=== PATIENT | male | born 1960 | race Caucasian/White ===

== ENCOUNTER 2017-10-31 00:50 | Inpatient (IN) | payer BC, OTHER ==
[2017-10-31 01:17] LABS: #Basophils 0.1 thou/uL (0.0-0.2); #Eosinphils 0.2 thou/uL (0.0-0.7); #Lymphocytes 2.2 thou/uL (1.20-3.40); #Monocytes 0.6 thou/uL (0.11-0.59); #Neutrophils 4.4 thou/uL (1.40-6.50); %Basophils 0.9 % (0.0-1.0); %Eosinophils 2.3 % (0.0-10.0); %Lymphocytes 29.8 % (21.0-51.0); %Monocytes 7.9 % (0.0-10.0); %Neutrophils 59.1 % (42.0-75.0); Hemoglobin 15.1 g/dL (14.0-18.0); Mean Corpuscular HGB CONC 35.4 g/dL (32.0-36.0); Mean Corpuscular Hemoglobin 35.5 pg (27.0-31.0); Mean Platelet Volume 8.1 fL (7.4-10.4); Platelet Count 203 thou/uL (130-400); RBC Distribution Width 11.8 % (11.5-14.5); Red Blood Cell (RBC) Count 4.27 mill/uL (4.70-6.10); White Blood Cell (WBC) Count 7.4 thou/uL (4.8-10.8)
[2017-10-31 01:41] LABS: ALT (SGPT) 17 U/L (8-55); AST (SGOT) 16 U/L (5-34); Albumin 3.9 g/dL (3.5-5.0); Alkaline Phosphatase 60 U/L (40-150); Anion Gap 12 mmol/L (10-20); BUN (Urea Nitrogen) 13 mg/dL (8.4-25.7); Bilirubin, Total 0.2 mg/dL (0.2-1.2); CK (CPK) 79 U/L (30-200); Calc. Creatinine Clearance 0 mL/min (70-130); Calcium 8.7 mg/dL (7.8-10.44); Carbon Dioxide 22 mmol/L (22-29); Chloride 108 mmol/L (98-107); Estimated GFR-MDRD 72; Globulin 2.7 g/dL (2.4-3.5); Glucose 106 mg/dL (70-105); Protein, Total 6.6 g/dL (6.0-8.3); Sodium 138 mmol/L (136-145)
[2017-10-31 03:16] LABS: CKMB 1.2 ng/mL (0-6.6); Troponin I Less than 0.010 ng/mL (< 0.028)
--- NOTE | 2017-10-31 06:44 | PDOC.FPRHP ---
- History of Present Illness Chief Complaint: chest pain History of Present Illness: 57 yo pt w/ pmh including stent 10 years ago comes in with crushing left sided chest pain. Woke him up from sleep at about 11pm last night. It lasted for about 1 min at a time and came and went about 5 times. Nothing made it worse, nitroglycerin made it better. Pain rated 10/10 at worst, 0 at time of examination. Caused L arm numbness. Became red in the face but denies diaphoresis. Has been feeling more fatigued than usual for the last few months. Does not feel like chest pain he had before his cath. ED Course: Trop negative EKG shows old RBB, no ST elevations or depression - Home Medications Medication Instructions Recorded Confirmed Type No Known [No Known] 10/31/17 10/31/17 History - History PMHx: No medical history per patient PSHx: cath with stent 10 years ago w/ Dr. Bernabe, neck surgery FHx: heart disease in mom at age 70 Social: drinks 6 cans of beer nightly, no smoking or drugs - Review of Systems General: denies: fever/chills, night sweats, fatigue ENT: denies: nasal congestion, rhinorrhea Respiratory: denies: cough, shortness of breath Cardiovascular: reports: chest pain. denies: palpitation, edema, orthopnea Gastrointestinal: denies: nausea, vomiting, diarrhea, constipation, abdominal pain Genitourinary: denies: incontinence, polyuria Skin: denies: rashes Musculoskeletal: denies: pain, arthritis/arthralgias Neurological: denies: numbness, weakness Psychological: denies: anxiety - Vital signs BP: 138/94 HR: 61 RR: 22 Tmax: 98.3 Pox: 94% on RA Wt: 92.99kg - Physical Exam Constitutional: NAD, awake, alert and oriented HEENT: normocephalic and atraumatic, PERRLA Neck: supple Heart: RRR, normal S1/S2, no murmurs/rubs/gallops Lungs: CTAB, no respiratory distress, good air movement Abdomen: soft, non-tender, bowel sounds present, no masses/distention, other ( no hepatomegaly) Musculoskeletal: normal structure Neurological: no focal deficit Skin: no rash/lesions, capillary refill <2 seconds Heme/Lymphatic: no unusual bruising or bleeding FMR H&P: Results - Labs Result Diagrams: 10/31/17 01:07 10/31/17 01:07 Lab results: WBC 7.4 thou/uL (4.8-10.8) 10/31/17 01:07 Hgb 15.1 g/dL (14.0-18.0) 10/31/17 01:07 Hct 42.8 % (42.0-52.0) 10/31/17 01:07 MCV 100.0 fl (80.0-94.0) H 10/31/17 01:07 Plt Count 203 thou/uL (130-400) 10/31/17 01:07 Neutrophils % 59.1 % (42.0-75.0) 10/31/17 01:07 Sodium 138 mmol/L (136-145) 10/31/17 01:07 Potassium 4.0 mmol/L (3.5-5.1) 10/31/17 01:07 Chloride 108 mmol/L (98-107) H 10/31/17 01:07 Carbon Dioxide 22 mmol/L (22-29) 10/31/17 01:07 BUN 13 mg/dL (8.4-25.7) 10/31/17 01:07 Creatinine 1.05 mg/dL (0.6-1.3) 10/31/17 01:07 Glucose 106 mg/dL (70-105) H 10/31/17 01:07 Calcium 8.7 mg/dL (7.8-10.44) 10/31/17 01:07 Total Bilirubin 0.2 mg/dL (0.2-1.2) 10/31/17 01:07 AST 16 U/L (5-34) 10/31/17 01:07 ALT 17 U/L (8-55) 10/31/17 01:07 Alkaline Phosphatase 60 U/L (40-150) 10/31/17 01:07 Creatine Kinase 79 U/L (30-200) 10/31/17 01:07 CK-MB (CK-2) 1.2 ng/mL (0-6.6) 10/31/17 01:07 B-Natriuretic Peptide Less than 10.0 pg/mL (0-100) 10/31/17 01:07 Serum Total Protein 6.6 g/dL (6.0-8.3) 10/31/17 01:07 Albumin 3.9 g/dL (3.5-5.0) 10/31/17 01:07 - EKG Interpretation EKG: Old RBB, no st changes FMR H&P: A/P - Problem List (1) Chest pain due to CAD Current Visit: Yes Status: Acute Code(s): R07.9 - CHEST PAIN, UNSPECIFIED; I25.10 - ATHSCL HEART DISEASE OF [place] CORONARY ARTERY W/O ANG PCTRS (2) Alcohol abuse Current Visit: Yes Status: Acute Code(s): F10.10 - ALCOHOL ABUSE, UNCOMPLICATED - Plan # Chest Pain, r/o CAD - CAth w/ stent 10 years ago - ASA, statin - EKG shows old RBB, no st changes - trop negative, trend x2 - BNP negative - check FLP - Plan for Exercise stress this AM - Consult Dr. Bernabe who is his [employer]ty [employer] Cook # Alcoholism - drinks 6 cans of beer per night - last drink 8pm 10/30 - ASE protocol Diet: NPO Fluids: none Code: full Dispo: <48 hours FMR H&P: Upper Level - Pertinent history 57 yo M with PMH significant for HTN, CAD s/p stent x1 presents with chest pain since early this morning. Pain is left-sided, nonradiating, pressure like in nature. Associated SOB. No associated N/V, diaphoresis, headache, dizziness, vision changes. Had multiple episodes after initial one woke him from sleep, each lasting about a minute. Pain improved after taking ASA in ER. States this does not feel like the chest pain he had when he had his stent placed in 2007. - Pertinent findings PE: T: 98.3 P: 61 BP: 132/94 RR: 22 94% on RA Gen: [place] male in NAD HEENT: PERRL, EOMI, MMM, no lymphadenopathy or thyromegaly CV: RRR no murmurs, distal pulses intact Pulm: CTAB, no wheezes or rhonchi Abd: soft, NT/ND, BS present, no masses Ext: no cyanosis or edema MSK: MARTINI well, no joint or muscle pain or swelling Neuro: CN 2-12 intact, normal sensation Skin: no rashes or lesions Psych: A&O x3, appropriate in conversation - Plan Date/Time: 10/31/17 0641 57 yo M here with CP. 1) Typical chest pain: Obs on tele, continue to trend cardiac enzymes. HEART score = 5. Will order stress given cardiac risk factors and history of CAD. Continue ASA. 2) HTN: Continue home medications. I, [Harley Brown], have evaluated this patient and agree with findings/plan as outlined by architecture internship resident. Pertinent changes/additions are listed here.
[2017-10-31] MEDS ORDERED: Acetaminophen 325 MG TAB PO PRN ×2 (07:20→07:33)
[2017-10-31 07:30] VITALS: BMI 32.3
[2017-10-31 07:30] LABS: CKMB 2.3 ng/mL (0-6.6); Troponin I 0.156 ng/mL (< 0.028)
[2017-10-31] MEDS ORDERED: Enoxaparin Sodium 40 MG/0.4 ML SYRINGE SC SCH (07:33)
[2017-10-31] MEDS ORDERED: Nitroglycerin 0.4 MG TAB (25 Tab Bottle) PO PRN (07:33)
[2017-10-31] MEDS ORDERED: Ondansetron ODT 4 MG TAB PO PRN (07:33)
[2017-10-31] MEDS ORDERED: Diazepam 5 MG TAB PO PRN (07:39)
[2017-10-31] MEDS ORDERED: Diazepam 5 MG TAB PO SCH (07:45)
[2017-10-31] MEDS ORDERED: Thiamine HCl 200 MG/2 ML VIAL IM SCH (07:45)
[2017-10-31 08:17] LABS: Magnesium 2.3 mg/dL (1.6-2.6); Phosphorus 2.6 mg/dL (2.3-4.7)
[2017-10-31 08:20] LABS: Cardiac Risk 6.6 (Less than 4.5)
--- NOTE | 2017-10-31 08:41 | PDOC.FM ---
- Subjective Subjective: Not complaining of chest pain this morning. - Objective MAR Reviewed: Yes Vital Signs & Weight: Vital Signs (12 hours) Temp Pulse Resp BP Pulse Ox 10/31/17 08:00 97.7 F 59 L 12 10/31/17 07:10 97.7 F 59 L 12 124/73 98 Weight Weight 108.182 kg Result Diagrams: 10/31/17 01:07 10/31/17 01:07 Phys Exam - Physical Examination Constitutional: NAD HEENT: PERRLA, moist MMs Respiratory: no wheezing, no rales, no rhonchi, clear to auscultation bilateral Cardiovascular: RRR, no significant murmur Gastrointestinal: soft, non-tender Musculoskeletal: no edema, pulses present Neurological: non-focal, normal sensation Psychiatric: normal affect, A&O x 3 Skin: no rash, normal turgor Dx/Plan - Plan Plan: 57 yo man with pmhx of CAD s/p cath and stent placement >10 years ago admitted for atypical chest pain with shortness of breath. # Chest Pain likely unstable angina - described as substernal with radiation to his neck and left shoulder, with associated shortness of breath and diffuse wheezing on exam - PMHx of CAD s/p CAth w/ stent 10 years ago - ASA, statin - EKG shows old RBB, no st changes - initial trop negative, second troponin indeterminate - BNP negative - check FLP - Consult Dr. Bernabe who is his Airplane Patroller, will change exercise to cardiolyte but suspect possible cath with current and pmhx. Will discuss with cardiology. - Pt's second trop and ckmb increased as well. - ther lovenox - repeat EKG # Alcoholism - drinks 6 cans of beer per night - last drink 8pm 10/30 - ASE protocol Diet: NPO Fluids: none Code: full Dispo: <48 hours
--- NOTE | 2017-10-31 08:54 | RAD ---
CHEST 1 VIEW: HISTORY: Chest pain. COMPARISON: Radiograph 08/04/09. FINDINGS: Lungs without focal airspace consolidation, pneumothorax, or effusion. Cardiac silhouette and medias tinal contours are similar. No pneumothorax. Incomplete evaluation of ACDF hardware. IMPRESSION: No acute intrathoracic abnormality. POS: TPC
[2017-10-31] MEDS ORDERED: Multivitamin W/ Minerals 1 TAB PO SCH (09:00)
[2017-10-31] MEDS ORDERED: Folic Acid 1 MG TAB PO SCH (09:00)
--- NOTE | 2017-10-31 09:56 | HP ---
I have reviewed the history and physical of Dr. Jules Gipson. I have discussed the case with him. HISTORY OF PRESENT ILLNESS: Mr. Pastrana is a pleasant 57-year-old white male patient with known lillian nary artery disease, who is status post stent placement 10 years ago with intermittent spotty followu ps since that time. He currently takes no medications. He was awoken last night with retrosternal c hest discomfort just to the left of the midline that was described as a heavy crushing feeling. It w as associated with shortness of breath, but no diaphoresis. Although it came and went, it lasted for at least several minutes. EMS was called and he was transported to the emergency room. He had rece ived 1 dose of nitroglycerin, which greatly relieved his chest discomfort. His initial troponin was negative. He has been admitted for further evaluation. PHYSICAL EXAMINATION: VITAL SIGNS: Current blood pressure is 124/73, pulse rate 60 and regular. He is afebrile. Room air saturation is 98%. GENERAL: He is awake, alert, in no distress. He states he is to have a very slight left-sided disco mfort, but not near as bad as he had earlier in the morning. EARS, NOSE, AND THROAT: He has no erythema or exudate. NECK: Supple without JVD. There are no carotid bruits. CARDIAC: The PMI is in the fifth intercostal space at the midclavicular line. An S4 apical gallop n oted. LUNGS: Clear, without rales or wheezes, though slightly diminished. ABDOMEN: Flat and soft, without guarding, rebound or rigidity. EXTREMITIES: No edema. NEUROLOGIC: No focal deficits. LABORATORY DATA: His initial troponin was 0.010. Subsequent troponin 6 hours later is 0.156, both o f these in the indeterminate range. Sodium is 138, potassium 4, chloride 108, bicarbonate 22, BUN 13 , creatinine 1.05, glucose 106. His liver enzymes are normal. CBC: White count 7400, hemoglobin 15 .8, hematocrit 42.1 with an MCV of 100. EKG: Right bundle branch block. ASSESSMENT: Chest pain suspicious for coronary syndrome in a patient with coronary artery disease. PLAN: We will get at least a stress test. We will consult Cardiology, may likely later need cathete rization. Continue to monitor troponins. I have administered aspirin and we will start the usual re gimen after stress test.
[2017-10-31] MEDS ORDERED: Enoxaparin Sodium 80 MG/0.8 ML SYRINGE SC SCH (10:00)
[2017-10-31 10:33] LABS: CKMB 2.8 ng/mL (0-6.6); Troponin I 0.191 ng/mL (< 0.028)
[2017-10-31] MEDS ORDERED: Iopamidol 370 76% 100 ML VIAL ONE (10:39)
[2017-10-31] MEDS ORDERED: Aspirin 81 mg Enteric Coated Tablet PO SCH (11:15)
--- NOTE | 2017-10-31 12:21 | EKG ---
Test Reason : Blood Pressure : / mmHG Vent. Rate : 055 BPM Atrial Rate : 055 BPM P-R Int : 186 ms QRS Dur : 150 ms QT Int : 438 ms P-R-T Axes : 055 035 021 degrees QTc Int : 419 ms Sinus bradycardia Right bundle branch block Abnormal ECG When compared with ECG of 31-OCT-2017 00:58, (Unconfirmed) T wave amplitude has increased in Anterior leads Confirmed by WALTER SHANKAR ([id number]) on 10/31/2017 12:20:59 PM Referred By: CELE Confirmed By:WALTER SHANKAR
[2017-10-31] MEDS ORDERED: Lidocaine 1% (PF) 30 ML VIAL ONE (14:16)
[2017-10-31] MEDS ORDERED: Sodium Chloride 0.9% 1,000 ML IV SCH (14:30)
[2017-10-31] MEDS ORDERED: Communication Order-Pharmacy FS SCH ×2 (14:30→17:20)
[2017-10-31] MEDS ORDERED: Fentanyl 100 MCG/2 ML VIAL ONE (14:34)
[2017-10-31] MEDS ORDERED: Midazolam HCl 2 mg/2 ml Vial ONE (14:34)
[2017-10-31] MEDS ORDERED: Heparin 10,000 UNITS/1 ML VIAL ONE (14:34)
[2017-10-31] MEDS ORDERED: Verapamil 5 MG/2 ML VIAL ONE ×2 (14:34→14:35)
[2017-10-31] MEDS ORDERED: Nitroglycerin 100MG/250ML BOT 250 ML ONE (14:35)
[2017-10-31] MEDS ORDERED: Acetaminophen/Codeine 30-300mg Tablet PO PRN ×2 (15:10)
[2017-10-31] MEDS ORDERED: traMADol HCl 50 MG TAB PO PRN (15:10)
[2017-10-31] MEDS ORDERED: Nitroglycerin 0.4 MG TAB (25 Tab Bottle) SL PRN (15:10)
[2017-10-31] MEDS ORDERED: Sodium Chloride 0.9% 200 ML IV PRN (15:15)
[2017-10-31] MEDS: Sodium Chloride 0.9% 1,000 ML IV SCH (15:35)
[2017-10-31 17:51] LABS: PTT 38.1 SEC (22.9-36.1); Prothrombin Time 13.6 SEC (12.0-14.7)
--- NOTE | 2017-10-31 17:52 | CON ---
DATE OF CONSULTATION: 10/31/2017 REASON FOR CONSULTATION: Elevated troponin and chest pain. HISTORY OF PRESENT ILLNESS: Mr. Pastrana is a 57-year-old gentleman who was seen and evaluated by Dr. Lawson Bernabe over 5 years ago. Mr. Pastrana has a history of a stent placement. During angiography performed by Dr. Lawson Bernabe in 2011, there was no evidence of stent placement. Last angiogram pe rformed in 2011 which showed the following: LAD with 40% mid stenosis followed by 40% distal stenosi s. Second diagonal branch with subtotal occlusion. Circumflex artery had 20% in-stent mid stenosis with 50% stenosis in a small OM. The right coronary artery had a 20% lesion. The patient has underg one a stent placement to the circumflex artery in the past. This was in 2005. He has been lost to f ollow up. Recently, Mr. Pastrana presented with acute onset of chest pain. Last 1-1/2 hours, it awoke him from sleep. Nitroglycerin seemed to improve his episode. No other associated ameliorating or exacerbatin g events present. PAST MEDICAL HISTORY: CAD, hyperlipidemia. FAMILY HISTORY: Positive for CAD. SOCIAL HISTORY: Positive alcohol use, no current tobacco use. REVIEW OF SYSTEMS: Ten-point review of systems reviewed as above, otherwise negative. PHYSICAL EXAMINATION: GENERAL: Patient is a pleasant male who is in no acute distress. The patient appears his stated age . VITAL SIGNS: Blood pressure 120/75, pulse 58, temperature afebrile. NEUROLOGIC: The patient is alert and oriented times 3 with no focal neurologic deficits. HEENT: Sclerae without icterus. Mouth has moist mucous membranes with normal pallor. NECK: No JVD. Carotid upstroke brisk. No bruits bilaterally. LUNGS: Clear to auscultation with unlabored respirations. BACK: No scoliosis or kyphosis. CARDIAC: Regular rate and rhythm with normal S1 and S2. No S3 or S4 noted. No significant rubs, mu rmurs, thrills, or gallops noted throughout the precordium. PMI is not displaced. There is no gavin ternal heave. ABDOMEN: Soft, nontender, nondistended. No peritoneal signs present. No hepatosplenomegaly. No ab normal striae. EXTREMITIES: 2+ femoral and 2+ dorsalis pedis pulses. No cyanosis, clubbing, or edema. SKIN: No gross abnormalities. PERTINENT LABS: Hemoglobin 15.1. Peak troponin 0.156. IMPRESSION: 1. Unstable angina. 2. Coronary artery disease. 3. Status post stent placement. RECOMMENDATIONS: I presented several options to Mr. Pastrana. I discussed cholangiography versus non invasive stress study. I have discussed the risks and benefits of both, he decided to proceed with c oronary angiography. I discussed the procedure in full detail with the patient. The risks of the pr ocedure were also discussed. The risks of the procedure include but are not limited to the following : , stroke, GA, need for emergency surgery, loss of limb, bleeding, and infection, as well as a reaction to the dye causing kidney failure and needing long-term dialysis. I also discussed the ris ks of PCI to include all of the above including coronary dissection and perforation in addition to ac puja stent thrombosis and restenosis. All questions about the procedure were answered. Given the abo ve, the patient agreed to proceed with coronary angiography and possible PCI. I also discussed drug coated and non-drug coated stent placement. His family was present during the discussion. He states he can take Plavix if needed for at least a year. Otherwise, no other contraindications. We will p roceed if needed.
[2017-10-31] MEDS ORDERED: Atorvastatin Calcium 40 MG TAB PO SCH (21:00)
[2017-10-31] MEDS ORDERED: Enoxaparin Sodium 100 MG/ML SYRINGE SC SCH ×2 (21:00)
[2017-10-31] MEDS ORDERED: Enoxaparin Sodium 120 MG/0.8 ML SYRINGE SC SCH (21:00)
--- NOTE | 2017-11-01 01:28 | CON ---
DATE OF CONSULTATION: 10/31/2017 REQUESTING PHYSICIAN: Dr. Kenny. CHIEF COMPLAINT: Chest pain. HISTORY OF PRESENT ILLNESS: The patient is a 57-year-old man with a personal and family history of p remature coronary artery disease, having self-undergone stenting about 10 years ago for coronary patricia ry disease, manifesting dyspnea on exertion. He had done reasonably well over the last 10 years, alt wilda it sounds like over the last few weeks or months, he has been having chest pain, typical of ang olivia that is largely chosen to simply ignore. Last night; however, he awoke from sleep with crushing left chest pain that radiated to his left arm, associated with shortness of breath. His troponins we re initially negative, but turned positive on followup draws. His EKG at baseline is right bundle br anch and he had no obvious changes from his baseline. PAST MEDICAL HISTORY: Significant for hypertension, coronary artery disease, although it sounds like he does not take medications on a regular basis. MEDICATIONS: He is currently on baby aspirin, Lipitor 40 mg at bedtime, thiamine, folate, multivitam ins, it appears beta blockers were deferred because of a baseline. Heart rate that has been largely in the upper 50s to lower 60s. ALLERGIES: He denies any medical allergies. SOCIAL HISTORY: He is rather noncommittal about smoking, initially saying he does not smoke when his family interjected, he corrected himself saying that he only smokes when he drinks, but he drinks da magalys. He admits to about a 6 pack of beer a day. FAMILY HISTORY: Significant for multiple first and second-degree relatives with coronary artery dise ase. REVIEW OF SYSTEMS: Negative for any transient eye, speech, facial, or extremity symptoms suggestive of TIAs. He is noticeable for some chronic neck pain and some numbness in both arms that he attribut es to his neck problems. He has no claudication symptoms. PHYSICAL EXAMINATION: GENERAL: He is a robust appearing man in no distress. EYES: He has no xanthelasma. NECK: No JVD, no carotid bruits. CHEST: Clear to auscultation. CARDIOVASCULAR: He has a regular rate and rhythm. ABDOMEN: Soft, nontender. EXTREMITIES: He has a pressure device on his right wrist from a radial puncture for his catheterizat ion. His left radial pulse is easily palpable with a normal 's test in the left hand. He has a palpable femoral, dorsalis pedis, and posterior tibial pulses. No obvious varicosities. No clubbin g, cyanosis, or edema. NEUROLOGIC: Nonfocal. VITAL SIGNS: Heart rate has been in the upper 50s to lower 60s, currently 58; blood pressure 132/80; temperature 98.4; room air sats are 94%. IMAGING: Chest x-ray showed slightly prominent pulmonary vasculature. LABORATORY DATA: White count 7.4, hemoglobin 15.1, hematocrit 42.8, platelets 203,000, but an MCV of 100. Electrolytes were normal, glucose 106, BUN 13, creatinine 1.05. LFTs were normal. Calcium 8. 7, protein 6.6, albumin 3.9. Troponins initially were undetectable, but roughly 6 hours later return ed positive at 0.156 and roughly 3 hours after that 0.191. Fasting triglycerides were 346, cholester ol 238, LDL 133, and HDL 36. Cardiac catheterization showed a right dominant system with a trivial i f any disease in the right coronary system. He had normal left main, but he had long complex disease in the proximal LAD with a very high first diagonal that has ostial disease. He has a small second diagonal with subtotal ostial stenosis. He has high-grade lesions throughout the proximal LAD. His circumflex has a diseased bifurcated OM1 that is modest caliber, has a long very high-grade lesion in the circumflex proper, prior to a very large second obtuse marginal and terminal arborization of the circumflex. LVEF is around 60% by my estimation. Aortic pressure was 104/66, mean of 83 and pullba ck from an LV of 104/5 with an EDP of 7. IMPRESSION AND PLAN: Severe 2-vessel disease. I think that he will get superior, long-term symptoma tic benefit from surgical revascularization and he agrees to proceed.
[2017-11-01] MEDS ORDERED: CEFAZOLIN/Water 2 GM/20 ML SYRINGE SLOW IVP SCH (02:45)
[2017-11-01] MEDS ORDERED: Diazepam 5 MG TAB PO PRN (04:00)
[2017-11-01] MEDS: Sodium Chloride 0.9% 1,000 ML IV SCH ×3 (05:47→14:34)
[2017-11-01] MEDS ORDERED: Albumin 5% 0 ML ONE (06:25)
[2017-11-01] MEDS ORDERED: Heparin 10,000 UNITS/1 ML VIAL 30,000 UNITS in Sodium Chloride 0.9% 1,000 ML FS SCH (06:45)
[2017-11-01] MEDS ORDERED: CEFAZOLIN/Water 2 GM/20 ML SYRINGE ONE (06:55)
--- NOTE | 2017-11-01 06:56 | PDOC.FM ---
- Subjective Subjective: Pt is s/p cath with 2V disease found. Pt in the OR this morning for a CABG. Will follow-up with afterwards. - Objective Vital Signs & Weight: Vital Signs (12 hours) Temp Pulse Resp BP BP Pulse Ox 11/01/17 04:47 97.9 F 58 L 16 109/69 96 10/31/17 23:40 98.1 F 59 L 12 117/70 95 10/31/17 20:00 98.1 F 74 18 125/71 94 L 10/31/17 19:55 98.1 F 59 L 12 94 L Result Diagrams: 11/02/17 04:03 11/02/17 04:03 Phys Exam - Physical Examination Constitutional: NAD HEENT: PERRLA, moist MMs Respiratory: no wheezing, no rales, no rhonchi, clear to auscultation bilateral Cardiovascular: RRR, no significant murmur Gastrointestinal: soft, non-tender Musculoskeletal: no edema Neurological: non-focal Dx/Plan (1) Unstable angina Status: Acute (2) CAD (coronary artery disease) Code(s): I25.10 - ATHSCL HEART DISEASE OF [place] CORONARY ARTERY W/O ANG PCTRS Status: Acute (3) HLD (hyperlipidemia) Code(s): E78.5 - HYPERLIPIDEMIA, UNSPECIFIED Status: Acute (4) Hx of heart artery stent Code(s): Z95.5 - PRESENCE OF CORONARY ANGIOPLASTY IMPLANT AND GRAFT Status: Acute (5) Alcohol abuse Code(s): F10.10 - ALCOHOL ABUSE, UNCOMPLICATED Status: Acute - Plan Plan: 57 yo man with pmhx of CAD s/p cath and stent placement >10 years ago admitted for atypical chest pain with shortness of breath. # Unstable angina s/p cath with 2V disease (LAD and Left circumflex) - CV surg and cards on board, plan for cabg today, appreciate recommendations - Continue aspirin, atorvastatin 80mg - nitro prn, morphine prn # CAD s/p stent placed ~10 yrs ago -uncontrolled, off medications for years # HLD -continue atorvastatin 80mg daily # Undiagnosed lung pathology -diffusely wheezing on exam yesterday -duonebs sched, albut prn -expanded lungs on cxr -consider further outpatient workup # Alcohol abuse - drinks 6 cans of beer per night - last drink 8pm 10/30 - ASE protocol Diet: NPO Fluids: none Code: full Dispo: <48 hours
[2017-11-01] MEDS ORDERED: Papaverine 60 MG/2 ML VIAL ONE ×2 (06:58→13:44)
[2017-11-01] MEDS ORDERED: Fentanyl 250 MCG/5 ML VIAL ONE (07:35)
[2017-11-01] MEDS ORDERED: Midazolam HCl 5 mg/5 ml Vial ONE (07:35)
[2017-11-01] MEDS ORDERED: Magnesium Oxide 400 MG TAB PO SCH (09:00)
[2017-11-01] MEDS ORDERED: Promethazine HCl 25 MG/ML VIAL IM PRN (11:51)
[2017-11-01] MEDS ORDERED: Mag-Al 1200 mg/1200 mg/30 ML UDCUP PO PRN (11:51)
[2017-11-01] MEDS ORDERED: Bisacodyl 10 MG SUPP PR PRN (11:51)
[2017-11-01] MEDS ORDERED: Fentanyl 100 MCG/2 ML VIAL SLOW IVP PRN (11:51)
[2017-11-01] MEDS ORDERED: HYDROcodone/Acetaminophen 5/325 mg Tablet PO PRN (11:51)
[2017-11-01] MEDS ORDERED: hydrALAZINE 20 MG/ML VIAL SLOW IVP PRN (11:51)
[2017-11-01] MEDS ORDERED: Acetaminophen 325 MG TAB PO PRN (11:51)
[2017-11-01] MEDS ORDERED: Potassium Chloride 20 MEQ/100 ML PREMIX BAG IVPB PRN (11:51)
[2017-11-01] MEDS ORDERED: Nitroglycerin 50 MG/250 ML BOT 250 ML IVPB PRN (11:51)
[2017-11-01] MEDS ORDERED: Bisacodyl 5 MG TAB PO PRN (11:51)
[2017-11-01] MEDS ORDERED: Norepinephrine 8 MG/0.9% NS 250 ML IVPB PRN (11:51)
[2017-11-01] MEDS ORDERED: Post-Op Insulin Drip Protocol IVPB ONE (11:51)
[2017-11-01] MEDS ORDERED: Ondansetron HCl/PF 4 MG/2 ML Vial IVP PRN (11:51)
[2017-11-01] MEDS ORDERED: Hetastarch 6% 500 ML 500 ML IVPB PRN (11:51)
[2017-11-01] MEDS ORDERED: Guaifenesin DM 100-10/5 ML UDCUP PO PRN (11:51)
--- NOTE | 2017-11-01 11:57 | PRG ---
DATE OF SERVICE: 11/01/2017 On rounds this morning, Mr. Pastrana had already been taken to surgery for his coronary artery bypass grafting. He was found yesterday on cardiac catheterization to have severe 2-vessel disease. CV Surg carly was consulted and have recommended CABG which he is now present at. I will see him later in the ICU after surgery.
[2017-11-01] MEDS ORDERED: Dextrose 5% in Water 1,000 ML IV PRN (12:18)
[2017-11-01] MEDS ORDERED: Dextrose 50% Abboject 50 ML SYRINGE SLOW IVP PRN (12:18)
[2017-11-01] MEDS ORDERED: Famotidine/PF 20 mg/2ml Vial SLOW IVP SCH ×2 (12:30→21:00)
[2017-11-01] MEDS ORDERED: Heparin 30,000 units/30 ml VIAL ONE (13:44)
[2017-11-01] MEDS ORDERED: Lidocaine 2% PF 100 mg/5 ml Syringe ONE (13:44)
[2017-11-01] MEDS ORDERED: Protamine Sulfate 250 MG/25 ML VIAL ONE (13:44)
[2017-11-01] MEDS ORDERED: Cardioplegic Soln 1,000 ML BAG ONE (13:44)
[2017-11-01] MEDS ORDERED: Potassium Chlo 10 mEq/5 ml Syr ONE (13:44)
[2017-11-01] MEDS ORDERED: PHENYLEPHRINE-NS 100 MCG/ML 10 ML SYRINGE ONE (13:44)
[2017-11-01] MEDS ORDERED: Calcium Chloride 1 GM/10 ML Abboject SYRINGE ONE (13:44)
[2017-11-01] MEDS ORDERED: Mannitol 12.5 GM/50 ML ONE (13:44)
[2017-11-01] MEDS ORDERED: PROPOFOL 200 MG/20 ML VIAL ONE (13:44)
[2017-11-01] MEDS ORDERED: Ondansetron HCl/PF 4 MG/2 ML Vial ONE (13:44)
[2017-11-01] MEDS ORDERED: Vecuronium 10 MG VIAL ONE (13:44)
[2017-11-01] MEDS ORDERED: Sodium Bicarb 50 MEQ/50 ML VIAL ONE (13:44)
[2017-11-01] MEDS ORDERED: Heparin 5,000 UNITS/ML VIAL ONE (13:44)
[2017-11-01] MEDS ORDERED: Magnesium 5 GM/10 ML VIAL ONE (13:44)
[2017-11-01 14:05] LABS: Actual Bicarbonate (HCO3a) 20.3 mEq/L (22-28); Base Excess (BEa) -4.8 mEq/L (-2.0 to +3.0); O2 Tension (PaO2) 71.5 mmHg (80.0-100.0); pH, Arterial 7.35 (7.35-7.45)
[2017-11-01 14:06] LABS: Hematocrit-ABG 44.5 % (42.0-52.0); Hemoglobin (Hb) 14.6 g/dL (14.0-18.0)
[2017-11-01 14:07] LABS: Calcium, Ionized 1.2 mmol/L (1.12-1.30)
[2017-11-01 14:08] LABS: Puncture Site A LINE
[2017-11-01 14:10] LABS: Mean Corpuscular HGB CONC 34.7 g/dL (32.0-36.0); Mean Corpuscular Hemoglobin 35.1 pg (27.0-31.0); Mean Platelet Volume 8.1 fL (7.4-10.4); Platelet Count 145 thou/uL (130-400); Red Blood Cell (RBC) Count 4.28 mill/uL (4.70-6.10); White Blood Cell (WBC) Count 22.4 thou/uL (4.8-10.8)
[2017-11-01 14:15] LABS: INR-International Normal Ratio 1.2; PTT 24.2 SEC (22.9-36.1); Prothrombin Time 15.4 SEC (12.0-14.7)
--- NOTE | 2017-11-01 14:21 | OP ---
DATE OF PROCEDURE: 11/01/2017 PROCEDURE PERFORMED: Coronary artery bypass grafting x3 with left internal mammary artery to the LAD and sequential free right internal mammary artery from the aorta to the first diagonal to the second obtuse marginal. PREOPERATIVE DIAGNOSIS: Coronary artery disease with post-infarction angina. POSTOPERATIVE DIAGNOSIS: Coronary artery disease with post-infarction angina. SURGEON: Darren Pennington M.D. METAL MOCKUP MAKER: Dr. Marcus Burnett ANESTHESIA: General endotracheal anesthesia. INDICATIONS: The patient is a 57-year-old man with known coronary disease who awoke from sleep with crushing chest pain and ruled in for myocardial infarction by enzymes. He had milder episode of ches t pain in the post-infarction period. Cardiac catheterization demonstrated severe left-sided disease . He is now taken to the operating room for coronary revascularization. FINDINGS: The pump time 97 minutes, crossclamp time 44 minutes, good quality IMAs and saphenous vein . The LAD was about a 2 mm vessel. The first diagonal was about 2-2.5 mm intramyocardial vessel. T he branches of the first obtuse marginal were about 1 mm. The second obtuse marginal was about 2 mm. The terminal circumflex branches were tiny. The pericardium was closed. NARRATIVE REPORT: After informed consent was obtained, the patient was taken to the operating room a nd placed in supine position on the operating table. After the induction of general anesthesia, the patient's right upper chest was prepped and draped in sterile fashion. A triple-lumen central line k it was used to place a right subclavian line by the Seldinger technique. All three ports easily aspi rated and flushed. The line was secured. Venous mapping with an ultrasound was done of the left thi gh and lower leg. It appeared to be a good quality vein. The patient's torso, groins and lower extr emities were prepped and draped in sterile fashion. Saphenous vein was harvested from the groin to m id thigh using a skin bridge technique and prepared for uses of graft. The harvest sites were closed in layers with subcutaneous and subcuticular Vicryl. A median sternotomy was performed. The right internal mammary artery was harvested as a skeletonized free graft from the level of the xiphoid to t he level of the innominate vein through an extrapleural exposure. Small rents in the pleura were repa ired with fine Prolene suture over a Valsalva maneuver. The distal end of the mammary was cannulated with a small olive tip needle and it was distended with papaverine solution to relieve spasm and to verify adequacy of control of side branches. The mammary bed was inspected for hemostasis. The left JEFERSON was then mobilized as a skeletonized in situ graft in a similar fashion. There were rents in th e pleura in areas where the pleura was too thin and the rent was too large to be reliably amenable to closure. The patient was heparinized. The mammary was ligated and divided distally. There was goo d flow through the mammary which was then instilled intraluminally with papaverine solution. [facility] lizzie bed was inspected for hemostasis. The JEFERSON retractor was placed with a morsel retractor. The p ericardium was opened and marsupialized. The aorta was palpated and was soft. A double concentric p ursestring of #2 Ethibond was placed in the ascending aorta within the pericardial reflection. A sin gle pursestring was placed in the right atrial appendage. Aortic and venous cannulae were inserted a nd secured by the pursestrings. Cardiopulmonary bypass was instituted and the patient was systemical ly cooled. The heart was examined. The vessel to be bypassed were identified. A longitudinal slit was made in the pericardium and to the left phrenic nerve and the hilar reflections of the left pleur a were mobilized. An aortic crossclamp was applied and cardioplegia was administered through an aort ic root needle. Attention was turned to the circumflex system. The OM1 was again examined and deeme d to be too small to support a graft. The OM2 was opened and the right mammary was anastomosed with running 7-0 Prolene suture orienting the anastomosis perpendicular to the axis of the coronary. The anastomosis was tested by flushing cold cardioplegic down the graft. The diagonal was then opened wh ere it began to dive into the intramyocardial into the myocardium. The right mammary graft was then opened with a corresponding arteriotomy. The lie of the graft was such that it was amenable to a par allel orientation of the anastomosis. A [id number] anastomosis was constructed. The LAD was then opened and the left mammary was anastomosed to it. The aortic cross clamp was placed in the partial occluding clamp and a generous aortotomy was created with scalpel and punch at the root needle site. Saphenous vein was reversed and generously spatulated and anastomosed there end-to-side with running Prolene creating a patulous [place]. The vein was doubly ligated and divided beyond that. A longitudi nal venotomy was made in that vein patch and the right mammary graft was distended, trimmed to length and spatulated generously. It was anastomosed there with running 7-0 Prolene. It was allowed to ba ckbleed and the suture line was secured. The partial occluding clamp was removed. The anastomoses w ere inspected for hemostasis. A posterior pericardial and left pleural drains brought out through se parate incisions and secured with suture. Right atrial and right ventricular temporary epicardial pa cing wires were placed. The patient was then easily from cardiopulmonary bypass. The aort ic and venous cannula were removed, and their pursestring secured. Protamine was administered. When hemostasis was adequate, an anterior mediastinal drain was placed and the pericardium was easily emelia sed over it with running Vicryl. The sternum was reapproximated with #7 stainless steel wires. Fasc ia closed over the wires with heavy Vicryl. Subcutaneous tissue was irrigated and reapproximated and the skin was closed with Vicryl subcuticular stitch. The wounds were dressed and the patient was ta justina to the Intensive Care Unit in stable condition.
[2017-11-01] MEDS: Fentanyl 100 MCG/2 ML VIAL SLOW IVP PRN ×2 (14:27→18:39)
[2017-11-01 14:32] LABS: Anion Gap 12 mmol/L (10-20); BUN (Urea Nitrogen) 9 mg/dL (8.4-25.7); Calc. Creatinine Clearance 142 mL/min (70-130); Calcium 8.1 mg/dL (7.8-10.44); Carbon Dioxide 19 mmol/L (22-29); Chloride 109 mmol/L (98-107); Estimated GFR-MDRD Greater than 90; Glucose 160 mg/dL (70-105); Potassium 4.3 mmol/L (3.5-5.1); Sodium 136 mmol/L (136-145)
[2017-11-01] MEDS: Ketorolac Tromethamine 30 MG/ML VIAL IVP SCH ×2 (14:33→16:43)
[2017-11-01 14:36] LABS: Band 11 % (5-11); Eosinophils 1 % (0-10); Lymphocytes 9 % (21-51); MDiff Complete? YES; Monocytes 2 % (0-10); Neutrophil 77 % (42-75); PLT Morphology Comment Appears Adequate; RBC Morphology Normal
[2017-11-01] MEDS: Insulin Regular 300 UNITS/3 ML VIAL SC PRN ×3 (14:43→20:36)
--- NOTE | 2017-11-01 15:40 | RAD ---
SINGLE VIEW OF THE CHEST: 11/01/17 COMPARISON: 10/31/17 HISTORY: Status post open heart surgery. FINDINGS: Single view of the chest shows a normal sized cardiomediastinal silhouette. The patient is status pos t sternotomy. There is an endotracheal tube with its tip between the clavicles. Left sided chest tube and mediastinal drain are seen. No pneumothorax is present. A right subclavian central venous cathet er is seen with its tip in the superior vena cava. IMPRESSION: Appropriate position of lines and tubes status post sternotomy. POS: [facility]
[2017-11-01 18:42] LABS: Actual Bicarbonate (HCO3a) 20.6 mEq/L (22-28); CO2 Tension 36.7 mmHg (35.0-45.0); O2 Tension (PaO2) 78.3 mmHg (80.0-100.0); pH, Arterial 7.37 (7.35-7.45)
[2017-11-01 18:43] LABS: Base Excess (BEa) -4.1 mEq/L (-2.0 to +3.0); Calcium, Ionized 1.1 mmol/L (1.12-1.30); Hematocrit-ABG 47.5 % (42.0-52.0); Hemoglobin (Hb) 15.4 g/dL (14.0-18.0); Puncture Site LINE
[2017-11-01 18:44] LABS: ALV-art Gradient 159.025 (0-20)
[2017-11-01 19:18] LABS: Hemoglobin 15.5 g/dL (14.0-18.0)
--- NOTE | 2017-11-01 19:24 | PRG ---
DATE OF SERVICE: 11/01/2017 TIME OF SERVICE: 03:22 p.m. SUBJECTIVE: I just examined Mr. Pastrnaa in the ICU upon his return from coronary artery bypass graft ing surgery. I reviewed Dr. Pennington's operative note and it appeared there were no complications . OBJECTIVE: Upon exam, Mr. Pastrana was intubated and partially sedated, but would arouse appropriatel y to verbal response. His vital signs are stable. His lungs sounded clear. He was also attended by Dr. Armas of the Intensive Care Service. PLAN: We will of course follow with Intensive Care and Cardiology as well as CV Surgery.
[2017-11-01 19:34] LABS: Potassium 4.3 mmol/L (3.5-5.1)
[2017-11-01] MEDS: HYDROcodone/Acetaminophen 5/325 mg Tablet PO PRN (20:35)
[2017-11-01] MEDS: Atorvastatin Calcium 40 MG TAB PO SCH (20:36)
--- NOTE | 2017-11-01 22:52 | CON ---
DATE OF CONSULTATION: 11/01/2017 HISTORY OF PRESENT ILLNESS: Mr. Pastrana is a 57-year-old male who underwent coronary bypass grafting . I was consulted because of his presence in the critical care unit after surgery. PAST MEDICAL HISTORY: Remarkable for lipid disorder. He is apparently not an active smoker. He does drink alcohol. FAMILY HISTORY: Negative for lung disease in early age. REVIEW OF SYSTEMS: Not obtainable. PHYSICAL EXAMINATION: VITAL SIGNS: His blood pressure 139/85, heart rate 71, respiratory rates 12. GENERAL: He will awake and he moves all extremities. He will nod to questions, still orally intubate d. HEENT: Pupils are equal. LUNGS: Remarkable for clear breath sounds. HEART: Regular rhythm. S1 and S2 are normal. ABDOMEN: Soft and nontender. EXTREMITIES: Without clubbing, cyanosis, or edema. NEUROLOGIC: Grossly nonfocal. IMAGING: Chest radiograph postoperatively has been reviewed. He has no infiltrates. Endotracheal t ubes in proper position. Looks like he has cervical spine hardware in place. A subclavian line was in the right atrium. Has pleural chest tube at the apex for left lung. LABORATORY: White count 22.4, hemoglobin 15, platelets 145. Electrolytes are normal. Anion gap is 18. A pH 7.35, CO2 of 30, pO2 of 71 on 70% with PEEP 5. I have turned his PEEP up to 8. Turned his FiO2 down to 55%. His sats are 92. We will start on nebulizer treatments as he does have a history of intermittently smoking I am told. IMPRESSION: Status post coronary artery bypass grafting. Hopefully, he will wean per protocol. Jacobo tilator adjustments have been made and then he can proceed with weaning as per the protocol. He tole rates the decreases in FiO2 and decreases in ventilatory support. Critical care time was 30 minutes.
[2017-11-02] MEDS: Ketorolac Tromethamine 30 MG/ML VIAL IVP SCH ×2 (00:12→06:13)
[2017-11-02] MEDS: Insulin Regular 300 UNITS/3 ML VIAL SC PRN ×2 (00:17→04:16)
[2017-11-02 04:08] LABS: #Lymphocytes 1.2 thou/uL (1.20-3.40); #Monocytes 1.3 thou/uL (0.11-0.59); #Neutrophils 13.8 thou/uL (1.40-6.50); %Basophils 0.1 % (0.0-1.0); %Lymphocytes 7.6 % (21.0-51.0); %Monocytes 8.1 % (0.0-10.0); %Neutrophils 84.3 % (42.0-75.0); Hemoglobin 13.5 g/dL (14.0-18.0); Mean Corpuscular HGB CONC 34.2 g/dL (32.0-36.0); Mean Corpuscular Hemoglobin 34.9 pg (27.0-31.0); Mean Platelet Volume 8.3 fL (7.4-10.4); Platelet Count 158 thou/uL (130-400); Red Blood Cell (RBC) Count 3.87 mill/uL (4.70-6.10); White Blood Cell (WBC) Count 16.4 thou/uL (4.8-10.8)
[2017-11-02] MEDS: Sodium Chloride 0.9% 1,000 ML IV SCH (04:16)
[2017-11-02 04:18] LABS: Anion Gap 11 mmol/L (10-20); BUN (Urea Nitrogen) 9 mg/dL (8.4-25.7); Calc. Creatinine Clearance 154 mL/min (70-130); Calcium 7.5 mg/dL (7.8-10.44); Carbon Dioxide 22 mmol/L (22-29); Chloride 108 mmol/L (98-107); Estimated GFR-MDRD Greater than 90; Glucose 154 mg/dL (70-105); Sodium 137 mmol/L (136-145)
[2017-11-02] MEDS: HYDROcodone/Acetaminophen 5/325 mg Tablet PO PRN ×5 (05:03→21:57)
[2017-11-02] MEDS ORDERED: Artificial Tears 18 DROP/0.9 ML EA EYE PRN (07:27)
[2017-11-02] MEDS ORDERED: diphenhydrAMINE 25 MG CAP PO PRN (07:27)
[2017-11-02] MEDS ORDERED: Bisacodyl 10 MG SUPP PR PRN (07:27)
[2017-11-02] MEDS ORDERED: Nitroglycerin 0.4 MG TAB (25 Tab Bottle) SL PRN (07:27)
[2017-11-02] MEDS ORDERED: Guaifenesin DM 100-10/5 ML UDCUP PO PRN (07:27)
[2017-11-02] MEDS ORDERED: Mineral Oil ENEMA PR PRN (07:27)
[2017-11-02] MEDS ORDERED: Zolpidem Tartrate 5 MG TAB PO PRN (07:27)
[2017-11-02] MEDS ORDERED: Mag-Al 1200 mg/1200 mg/30 ML UDCUP PO PRN (07:27)
[2017-11-02] MEDS ORDERED: Bisacodyl 5 MG TAB PO PRN (07:27)
[2017-11-02] MEDS: Metoprolol Tartrate 25 MG TAB PO SCH ×2 (07:48→21:57)
[2017-11-02] MEDS: Furosemide 40 MG/4 ML VIAL SLOW IVP SCH ×2 (07:48→13:16)
[2017-11-02] MEDS: Aspirin 325 mg Enteric Coated Tablet PO SCH (07:48)
--- NOTE | 2017-11-02 07:50 | RAD ---
UPRIGHT PORTABLE CHEST 1 VIEW: HISTORY: A 57-year-old male followup postop open heart. COMPARISON: 11/01/17. FINDINGS: Chest tubes in place on the left side. Right subclavian catheter in place. Recent postop midline st ernotomy with some patchy parenchymal changes in the mid and lower lung zones becoming somewhat more dense in the right base with possibilities including that of some developing pneumonitis and/or atele ctasis. No evidence for pneumothorax. IMPRESSION: Bibasilar parenchymal changes becoming more confluent in the right base. No pneumothorax. Continue short-term followup. POS: [facility]
--- NOTE | 2017-11-02 09:19 | PDOC.FM ---
- Subjective Subjective: Extubated and requiring 2L O2. Doing well. Sitting up in chair. Endorses some pain. Getting norco prn. - Objective MAR Reviewed: Yes Vital Signs & Weight: Vital Signs (12 hours) Temp Pulse Resp Pulse Ox 11/02/17 08:00 98.7 F 91 24 H 95 11/02/17 06:58 98 11/02/17 06:56 96 25 H 11/02/17 02:22 98 20 100 11/02/17 00:00 98.9 F 11/01/17 21:33 83 20 100 Weight Weight 106.5 kg Most Recent Monitor Data Heart Rate from ECG 91 NIBP 109/75 NIBP BP-Mean 89 Respiration from ECG 22 SpO2 94 I&O: 11/01/17 11/02/17 11/03/17 06:59 06:59 06:59 Intake Total 1701.9 240 Output Total 1470 93 Balance 231.9 147 Result Diagrams: 11/02/17 04:03 11/02/17 04:03 Phys Exam - Physical Examination Constitutional: NAD HEENT: PERRLA, moist MMs Respiratory: no wheezing, no rales, clear to auscultation bilateral Cardiovascular: RRR, no significant murmur Gastrointestinal: soft, non-tender Musculoskeletal: no edema Neurological: non-focal Psychiatric: normal affect, A&O x 3 Skin: no rash Dx/Plan (1) Unstable angina Status: Acute (2) CAD (coronary artery disease) Code(s): I25.10 - ATHSCL HEART DISEASE OF [place] CORONARY ARTERY W/O ANG PCTRS Status: Acute (3) HLD (hyperlipidemia) Code(s): E78.5 - HYPERLIPIDEMIA, UNSPECIFIED Status: Acute (4) Hx of heart artery stent Code(s): Z95.5 - PRESENCE OF CORONARY ANGIOPLASTY IMPLANT AND GRAFT Status: Acute (5) Alcohol abuse Code(s): F10.10 - ALCOHOL ABUSE, UNCOMPLICATED Status: Acute - Plan Plan: 7 yo man with pmhx of CAD s/p cath and stent placement >10 years ago admitted for atypical chest pain with shortness of breath, s/p 2V CABG, post op day 1. # Unstable angina s/p cath with 2V disease, s/p 2v CABG - post op day 1 - pt extubated, sitting up in chair this morning - CV surg and cards on board, plan for cabg today, appreciate recommendations - Continue aspirin, atorvastatin 80mg, metoprolol and lasix bid - norco prn pain - guafenesin prn cough # CAD -see above # HLD -continue atorvastatin 80mg daily # Undiagnosed lung pathology -wheezing resolved -duonebs sched, albut prn -expanded lungs on cxr -consider further outpatient workup # Alcohol abuse - drinks 6 cans of beer per night - last drink 8pm 10/30 - ASE protocol Diet: NPO Fluids: none Code: full Dispo: <48 hours
--- NOTE | 2017-11-02 09:50 | PRG ---
DATE OF SERVICE: 11/02/2017 Mr. Pastrana did well. He was extubated per protocol overnight. PHYSICAL EXAMINATION: VITAL SIGNS: Heart rate is 91. Blood pressure 109/75, respiratory rate is 22. Intake and output is positive 231. Chest tube drainage has been approximately a little over 600 mL overnight, only 90 mL from the pleura l drain. LABORATORY DATA: White count 16.4, hemoglobin 13.5, platelets 158. Sodium 137, potassium 4, chloride 108, bicarbonate 22, BUN 9, creatinine 0.79. Last blood gas prior to extubation 7.37, CO2 36, pO2 78 on CPAP. Chest radiograph shows no infiltrates or effusions. IMPRESSION: Status post coronary bypass grafting, clinically doing well. He is sitting in the [facility] de chair in no distress with clear lungs. The remainder of his exam is benign. He is in great spiri ts. He says he wants to go home tomorrow. He says he needs to go cut hay. I have explained to me will be in the hospital a few more days. Hopefully, his chest tubes will come out soon and we can begin ambulating him.
--- NOTE | 2017-11-02 11:00 | HP ---
DATE OF SERVICE: 11/02/2017 This is an addendum to the note of Dr. Alondra Alexandre. Mr. Pastrana is currently postop day #1 from his CABG surgery. He is awake, alert, sitting in a bedsi de chair and in no distress. He has minimal chest pain. No shortness of breath. His vital signs ar e stable. He will be transferred to the regular floor today to begin cardiac rehabilitation.
--- NOTE | 2017-11-02 13:08 | EKG ---
Test Reason : POST CABG Blood Pressure : / mmHG Vent. Rate : 067 BPM Atrial Rate : 067 BPM P-R Int : 142 ms QRS Dur : 144 ms QT Int : 430 ms P-R-T Axes : 079 051 021 degrees QTc Int : 454 ms Normal sinus rhythm Right bundle branch block Abnormal ECG When compared with ECG of 31-OCT-2017 10:52, No significant change was found Confirmed by WALETR SHANKAR ([id number]) on 11/02/2017 1:07:50 PM Referred By: AMINA Confirmed By:WALTER SHANKAR
[2017-11-02] MEDS: Atorvastatin Calcium 40 MG TAB PO SCH (21:57)
[2017-11-03] MEDS: HYDROcodone/Acetaminophen 5/325 mg Tablet PO PRN ×6 (01:58→23:02)
[2017-11-03 05:01] LABS: #Lymphocytes 1.7 thou/uL (1.20-3.40); #Neutrophils 12.3 thou/uL (1.40-6.50); %Basophils 0.2 % (0.0-1.0); %Eosinophils 0.3 % (0.0-10.0); %Lymphocytes 11.4 % (21.0-51.0); %Monocytes 6.7 % (0.0-10.0); %Neutrophils 81.4 % (42.0-75.0); Mean Corpuscular Hemoglobin 34.9 pg (27.0-31.0); Mean Platelet Volume 8.4 fL (7.4-10.4); Platelet Count 140 thou/uL (130-400); RBC Distribution Width 11.9 % (11.5-14.5); Red Blood Cell (RBC) Count 3.74 mill/uL (4.70-6.10); White Blood Cell (WBC) Count 15.1 thou/uL (4.8-10.8)
[2017-11-03 05:08] LABS: Anion Gap 12 mmol/L (10-20); BUN (Urea Nitrogen) 10 mg/dL (8.4-25.7); Calc. Creatinine Clearance 127 mL/min (70-130); Calcium 8.2 mg/dL (7.8-10.44); Carbon Dioxide 25 mmol/L (22-29); Chloride 104 mmol/L (98-107); Estimated GFR-MDRD 82; Glucose 123 mg/dL (70-105); Potassium 4.1 mmol/L (3.5-5.1); Sodium 137 mmol/L (136-145)
--- NOTE | 2017-11-03 07:29 | PDOC.FM ---
- Subjective Subjective: Patient having sternal chest pain, worse when he coughs. He also reports decreased appetite. He has not had a BM since his surgery, but he is passing gas. - Objective MAR Reviewed: Yes Vital Signs & Weight: Vital Signs (12 hours) Temp Pulse Resp BP Pulse Ox 11/03/17 07:10 110 H 16 11/03/17 04:00 99.3 F 104 H 12 109/71 90 L 11/03/17 02:02 108 H 22 H 11/03/17 01:11 94 L 11/02/17 22:40 107 H 20 Weight Weight 103.555 kg Most Recent Monitor Data Heart Rate from ECG 91 NIBP 109/75 NIBP BP-Mean 89 Respiration from ECG 22 SpO2 94 I&O: 11/02/17 11/03/17 11/04/17 06:59 06:59 06:59 Intake Total 1701.9 1200 Output Total 1470 2338 Balance 231.9 -1138 Result Diagrams: 11/03/17 04:42 11/03/17 03:30 <Linda Zamora - Last Filed: 11/03/17 07:27> - Objective Vital Signs & Weight: Vital Signs (12 hours) Temp Pulse Resp BP Pulse Ox 11/04/17 06:55 100 14 11/04/17 04:00 99.0 F 103 H 18 100/56 L 94 L 11/03/17 23:04 90 16 Weight Weight 103.555 kg Most Recent Monitor Data Heart Rate from ECG 91 NIBP 109/75 NIBP BP-Mean 89 Respiration from ECG 22 SpO2 94 I&O: 11/03/17 11/04/17 11/05/17 06:59 06:59 06:59 Intake Total 1200 720 Output Total 2338 800 Balance -1138 -80 Result Diagrams: 11/03/17 04:42 11/03/17 03:30 <Herbert Chopra - Last Filed: 11/04/17 10:24> Phys Exam - Physical Examination Constitutional: NAD HEENT: moist MMs Respiratory: no wheezing, no rales, no rhonchi, clear to auscultation bilateral Cardiovascular: RRR, no significant murmur, no rub Gastrointestinal: soft, no distention, positive bowel sounds mildly tender to palpation in KERI region Musculoskeletal: no edema, pulses present Neurological: normal sensation, moves all 4 limbs Psychiatric: normal affect, A&O x 3 Skin: normal turgor, cap refill <2 seconds Deviation from normal: incision c/d/i with dressing in place <Linda Zamora - Last Filed: 11/03/17 07:27> Dx/Plan (1) Unstable angina Status: Acute (2) CAD (coronary artery disease) Code(s): I25.10 - ATHSCL HEART DISEASE OF [place] CORONARY ARTERY W/O ANG PCTRS Status: Acute QualifierTitle: Coronary Disease-Associated Artery/Lesion type: [place] artery [place] vs. transplanted heart: [place] heart Associated angina: with unstable angina Qualified Code(s): I25.110 - Atherosclerotic heart disease of [place] coronary artery with unstable angina pectoris (3) HLD (hyperlipidemia) Code(s): E78.5 - HYPERLIPIDEMIA, UNSPECIFIED Status: Acute QualifierTitle: Hyperlipidemia type: unspecified Qualified Code(s): E78.5 - Hyperlipidemia, unspecified (4) Hx of heart artery stent Code(s): Z95.5 - PRESENCE OF CORONARY ANGIOPLASTY IMPLANT AND GRAFT Status: Acute (5) Alcohol abuse Code(s): F10.10 - ALCOHOL ABUSE, UNCOMPLICATED Status: Acute - Plan Plan: Unstable angina s/p cath with 2V disease, s/p 2v CABG post op day 2. Pt extubated on POD 1, sitting up in bed this AM - CV surg and cards on board, appreciate recs - Chest tubes x2 in place - Continue aspirin, atorvastatin 80mg, metoprolol and lasix bid - norco prn pain - guafenesin prn cough CAD - see above HLD - continue atorvastatin 80mg daily Alcohol abuse - drinks 6 cans of beer per night - last drink 8pm 10/30 - Monitor for signs of withdrawal <Linda Zamora - Last Filed: 11/03/17 07:27> Attending Addendum - Attending Addendum Date/Time: 11/04/17 1023 I personally evaluated the patient and discussed the management with Dr. Zamora on 11/03. I agree with the History, Examination, Assessment and Plan documented above with any addition or exceptions noted below. <Herbert Chopra - Last Filed: 11/04/17 10:24>
[2017-11-03] MEDS: Metoprolol Tartrate 25 MG TAB PO SCH ×2 (08:05→20:35)
[2017-11-03] MEDS: Aspirin 325 mg Enteric Coated Tablet PO SCH (08:05)
--- NOTE | 2017-11-03 09:07 | RAD ---
PORTABLE CHEST: Date: 11/03/17 HISTORY: Postop open heart surgery. COMPARISON: Prior day's exam. FINDINGS: Heart size is within normal limits for portable technique. Postop sternotomy changes are present. Rig ht subclavian line and left chest tube are unchanged in position. Bibasilar atelectatic lung changes are stable. IMPRESSION: Stable exam. POS: [facility]
--- NOTE | 2017-11-03 15:43 | PRG ---
DATE OF SERVICE: 11/03/2017 SUBJECTIVE: The patient is doing well and had no acute complaints. OBJECTIVE: VITAL SIGNS: Temperature 98.7, pulse 110, respiration 16, O2 sat 95%, blood pressure 120/74. HEENT: Unremarkable. NECK: No adenopathy or JVD. LUNGS: Clear. CARDIAC: S1 and S2 regular. ABDOMEN: Soft. EXTREMITIES: No edema. ASSESSMENT: Post-CABG was stable pulmonary status. PLAN: Continue nebs as needed. Hopefully can go home in the next couple of days.
[2017-11-03] MEDS: Atorvastatin Calcium 40 MG TAB PO SCH (20:35)
[2017-11-04] MEDS: HYDROcodone/Acetaminophen 5/325 mg Tablet PO PRN ×3 (02:56→19:12)
--- NOTE | 2017-11-04 07:29 | PDOC.FM ---
- Subjective Subjective: Patient doing much better this morning. Reports that his chest pain is improved. He is tolerating a small amount of PO, but not full meals yet. He is passing flatus, but denies a BM yet. He reports that his breathing is improved after getting the chest tubes removed. - Objective MAR Reviewed: Yes Vital Signs & Weight: Vital Signs (12 hours) Temp Pulse Resp BP Pulse Ox 11/04/17 06:55 100 14 11/04/17 04:00 99.0 F 103 H 18 100/56 L 94 L 11/03/17 23:04 90 16 11/03/17 19:45 99.2 F 115 H 16 137/79 96 Weight Weight 103.555 kg Most Recent Monitor Data Heart Rate from ECG 91 NIBP 109/75 NIBP BP-Mean 89 Respiration from ECG 22 SpO2 94 I&O: 11/03/17 11/04/17 11/05/17 06:59 06:59 06:59 Intake Total 1200 720 Output Total 2338 800 Balance -1138 -80 Result Diagrams: 11/03/17 04:42 11/03/17 03:30 <Linda Zamora - Last Filed: 11/04/17 07:26> - Objective Vital Signs & Weight: Vital Signs (12 hours) Temp Pulse Resp BP Pulse Ox 11/04/17 10:31 120 H 16 11/04/17 08:00 98.1 F 98 22 H 134/78 94 L 11/04/17 06:55 100 14 11/04/17 04:00 99.0 F 103 H 18 100/56 L 94 L 11/03/17 23:04 90 16 Weight Weight 103.555 kg Most Recent Monitor Data Heart Rate from ECG 91 NIBP 109/75 NIBP BP-Mean 89 Respiration from ECG 22 SpO2 94 I&O: 11/03/17 11/04/17 11/05/17 06:59 06:59 06:59 Intake Total 1200 720 Output Total 2338 800 Balance -1138 -80 Result Diagrams: 11/03/17 04:42 11/03/17 03:30 <Herbert Chopra - Last Filed: 11/04/17 10:58> Phys Exam - Physical Examination Constitutional: NAD HEENT: moist MMs Respiratory: no wheezing, no rales, no rhonchi, clear to auscultation bilateral Cardiovascular: RRR, no significant murmur, no rub Gastrointestinal: soft, non-tender, no distention, positive bowel sounds Musculoskeletal: no edema, pulses present Neurological: non-focal, normal sensation, moves all 4 limbs Psychiatric: normal affect, A&O x 3 Skin: no rash, normal turgor, cap refill <2 seconds Deviation from normal: incision c/d/i <Linda Zamora - Last Filed: 11/04/17 07:26> Dx/Plan (1) Unstable angina Status: Acute (2) CAD (coronary artery disease) Code(s): I25.10 - ATHSCL HEART DISEASE OF [place] CORONARY ARTERY W/O ANG PCTRS Status: Acute QualifierTitle: Coronary Disease-Associated Artery/Lesion type: [place] artery [place] vs. transplanted heart: [place] heart Associated angina: with unstable angina Qualified Code(s): I25.110 - Atherosclerotic heart disease of [place] coronary artery with unstable angina pectoris (3) HLD (hyperlipidemia) Code(s): E78.5 - HYPERLIPIDEMIA, UNSPECIFIED Status: Acute QualifierTitle: Hyperlipidemia type: unspecified Qualified Code(s): E78.5 - Hyperlipidemia, unspecified (4) Hx of heart artery stent Code(s): Z95.5 - PRESENCE OF CORONARY ANGIOPLASTY IMPLANT AND GRAFT Status: Acute (5) Alcohol abuse Code(s): F10.10 - ALCOHOL ABUSE, UNCOMPLICATED Status: Acute - Plan Plan: Unstable angina s/p cath with 2V disease, s/p 2v CABG POD#3. Chest tubes removed yesterday - CV surg and cards on board, appreciate recs - Continue aspirin, atorvastatin, metoprolol - norco prn pain - guafenesin prn cough CAD - see above HLD - continue atorvastatin 80mg daily Alcohol abuse - drinks 6 cans of beer per night - last drink 8pm 10/30 - Monitor for signs of withdrawal Dispo: likely d/c home tomorrow pending CV surgery recs <Linda Zamora - Last Filed: 11/04/17 07:26> Attending Addendum - Attending Addendum Date/Time: 11/04/17 0397 I personally evaluated the patient and discussed the management with Dr. Zamora. I agree with the History, Examination, Assessment and Plan documented above with any addition or exceptions noted below. Team will discuss significance of small apical PTX with CV surg. <Herbert Chopra - Last Filed: 11/04/17 10:58>
[2017-11-04] MEDS: Aspirin 325 mg Enteric Coated Tablet PO SCH (07:50)
[2017-11-04] MEDS: Metoprolol Tartrate 25 MG TAB PO SCH ×2 (07:51→20:49)
--- NOTE | 2017-11-04 09:51 | RAD ---
PORTABLE CHEST: Date: 11/04/17 HISTORY: Postop open heart surgery. COMPARISON: Prior day's study. FINDINGS: Left-sided chest tube has been removed. Postop sternotomy changes again noted. Heart size is enlarged . Right subclavian line is unchanged in position. There is a very small right apical pneumothorax james t in retrospect is probably present on the prior exam, just more difficult to visualize. Bibasilar at electatic lung changes are seen. IMPRESSION: 1. Interval removal of left chest tube. No signs of left pneumothorax. 2 Tiny right apical pneumothorax seen. This was telephoned to [facility]'s nurse, Bethanie. CODE CR. POS: [facility]
[2017-11-04] MEDS: Atorvastatin Calcium 40 MG TAB PO SCH (20:49)
[2017-11-05] MEDS: HYDROcodone/Acetaminophen 5/325 mg Tablet PO PRN ×2 (01:54→08:16)
--- NOTE | 2017-11-05 06:02 | PDOC.FM ---
- Subjective Subjective: Wilber Pastrana seen at bedside this morning. He is POD #4 from 2 vessel CABG. He is feeling well, there were no acute events overnight. He denies any chest pain, palpitations, fever, chills, dyspnea. - Objective MAR Reviewed: Yes Vital Signs & Weight: Vital Signs (12 hours) Temp Pulse Resp BP Pulse Ox 11/05/17 04:00 98.9 F 95 20 127/61 94 L 11/04/17 23:56 98.9 F 95 20 114/75 96 11/04/17 21:37 101 H 18 92 L 11/04/17 20:00 99.3 F 97 20 132/79 96 11/04/17 18:09 95 16 93 L Weight Weight 103.419 kg Most Recent Monitor Data Heart Rate from ECG 91 NIBP 109/75 NIBP BP-Mean 89 Respiration from ECG 22 SpO2 94 I&O: 11/03/17 11/04/17 11/05/17 06:59 06:59 06:59 Intake Total 1200 720 750 Output Total 2338 800 1000 Balance -1138 -80 -250 Result Diagrams: 11/03/17 04:42 11/03/17 03:30 <Alessandro Herrera - Last Filed: 11/05/17 07:10> - Objective Vital Signs & Weight: Vital Signs (12 hours) Temp Pulse Resp BP BP Pulse Ox 11/05/17 08:00 98.5 F 90 16 94 L 11/05/17 07:32 93 18 92 L 11/05/17 07:20 98.5 F 90 16 121/70 94 L 11/05/17 04:00 98.9 F 95 20 127/61 94 L Weight Weight 103.419 kg Most Recent Monitor Data Heart Rate from ECG 91 NIBP 109/75 NIBP BP-Mean 89 Respiration from ECG 22 SpO2 94 I&O: 11/04/17 11/05/17 11/06/17 06:59 06:59 06:59 Intake Total 720 1270 Output Total 800 1520 Balance -80 -250 Result Diagrams: 11/03/17 04:42 11/03/17 03:30 <Sarah Edwards - Last Filed: 11/05/17 12:30> Phys Exam - Physical Examination Constitutional: NAD HEENT: moist MMs, sclera anicteric Neck: no JVD, supple, full ROM Respiratory: no wheezing, no rales, no rhonchi, clear to auscultation bilateral Cardiovascular: RRR, no significant murmur, no rub Gastrointestinal: soft, non-tender, no distention Musculoskeletal: no edema, pulses present Neurological: non-focal, normal sensation Lymphatic: no nodes Psychiatric: normal affect, A&O x 3 Skin: no rash, normal turgor <Alessandro Herrera - Last Filed: 11/05/17 07:10> Dx/Plan (1) Unstable angina Status: Acute (2) CAD (coronary artery disease) Code(s): I25.10 - ATHSCL HEART DISEASE OF [place] CORONARY ARTERY W/O ANG PCTRS Status: Chronic QualifierTitle: Coronary Disease-Associated Artery/Lesion type: [place] artery [place] vs. transplanted heart: [place] heart Associated angina: with unstable angina Qualified Code(s): I25.110 - Atherosclerotic heart disease of [place] coronary artery with unstable angina pectoris (3) HLD (hyperlipidemia) Code(s): E78.5 - HYPERLIPIDEMIA, UNSPECIFIED Status: Chronic QualifierTitle: Hyperlipidemia type: unspecified Qualified Code(s): E78.5 - Hyperlipidemia, unspecified (4) Hx of heart artery stent Code(s): Z95.5 - PRESENCE OF CORONARY ANGIOPLASTY IMPLANT AND GRAFT Status: Chronic (5) Alcohol abuse Code(s): F10.10 - ALCOHOL ABUSE, UNCOMPLICATED Status: Chronic - Plan Plan: 1) Unstable angina - s/p cath with 2V disease, s/p 2v CABG - POD#4. Chest tubes removed / - CV surg and cards on board, appreciate recs - Continue aspirin, atorvastatin, metoprolol - norco prn pain - guafenesin prn cough CAD - see above HLD - continue atorvastatin 80mg daily Alcohol abuse - drinks 6 cans of beer per night - last drink 8pm 10/30 - Monitor for signs of withdrawal Dispo: likely d/c home today pending CV surgery recs <Alessandro Herrera - Last Filed: 11/05/17 07:10> Attending Addendum - Attending Addendum Date/Time: 11/05/17 1230 I personally evaluated the patient and discussed the management with Dr. Barrientos and Dr. Herrera I agree with the History, Examination, Assessment and Plan documented above with any addition or exceptions noted below. Ok for d/c to home. Cleared by cards and CT. Josue <Sarah Edwards - Last Filed: 11/05/17 12:30>
[2017-11-05 08:03] VITALS: BP 121/70; TEMP 98.5
[2017-11-05] MEDS: Aspirin 325 mg Enteric Coated Tablet PO SCH (08:15)
--- NOTE | 2017-11-05 08:32 | DIS ---
DATE OF ADMISSION: 10/31/2017 DATE OF DISCHARGE: 11/05/2017 PRINCIPAL DIAGNOSES: Coronary artery disease with non-ST elevation myocardial infarction and post-in farction angina. PROCEDURES PERFORMED: Cardiac catheterization, 10/31/2017; coronary artery bypass grafting x3 with l eft internal mammary artery to the LAD and sequential free right internal mammary artery from the aor ta to the first diagonal to the second obtuse marginal, 11/01/2017. HISTORY OF PRESENT ILLNESS AND HOSPITAL COURSE: The patient is a 57-year-old man with a personal and family history of premature coronary artery disease. About 10 years ago, he had undergone circumfle x stenting that culminated the workup of dyspnea on exertion. He has done reasonably well since then , although in retrospect, he has been having angina of late and he simply ignored it. He awoke with severe chest pain radiating to his left arm and also had shortness of breath and he then presented to the hospital. His initial troponins were negative, but turned positive on followup sampling. Cardi ac catheterization demonstrated severe 2-vessel disease involving the LAD and circumflex system. He had a long complex lesion in the proximal LAD with an involved high first diagonal. He had a disease d modest sized bifurcated OM1 and a fairly good size OM2 involved with and compromised by a lesion in the circumflex proper and preserved left ventricular function. He underwent surgical revascularizat ion using left internal mammary artery to the LAD and sequential free right internal mammary artery t o the first diagonal and the second obtuse marginal, bringing that graft off of the vein patch on the aorta. The OM1 proved small and was not grafted. He had an uncomplicated postoperative course afte r having had additional angina preoperatively. He was extubated the evening of surgery, a short cour se of diuresis was initiated the following day and he was transferred to the telemetry unit. His mariya st tubes were removed on postoperative day #2, his level of activity improved and he is now being dis charged home on postoperative day #4 with a prescription for Vicodin as needed for pain. He is to ta ke an aspirin a day, Lipitor 80 mg at bedtime, and Lopressor 50 mg b.i.d. I will plan on seeing him in the office in roughly 2 weeks' time. Follow up with Dr. Kenny will be per him.
[2017-11-05] MEDS ORDERED: Metoprolol Tartrate 50 MG TAB PO SCH (09:00)
== END 2017-11-05 10:16 | disposition home or self-care (01) | DRG 234 ==
LOC: ERS 00:50 → 2SW 06:04 → OBSVTOIN 15:31 → 2NO 18:32 → CCU 11-01 08:02 → 2NO 11-02 09:35
PROVIDERS: ADMIT Family Medicine; ATTEND Family Medicine
PROC: 4A023N7 Measurement of Cardiac Sampling and Pressure, Left Heart, Percutaneous Approach (ICD-10-PCS; 2017-10-31)
PROC: B215YZZ Fluoroscopy of Left Heart using Other Contrast (ICD-10-PCS; 2017-10-31)
PROC: B211YZZ Fluoroscopy of Multiple Coronary Arteries using Other Contrast (ICD-10-PCS; 2017-10-31)
PROC: 02100Z9 Bypass Coronary Artery, One Artery from Left Internal Mammary, Open Approach (ICD-10-PCS; principal; 2017-11-01)
PROC: 02110AW Bypass Coronary Artery, Two Arteries from Aorta with Autologous Arterial Tissue, Open Approach (ICD-10-PCS; 2017-11-01)
PROC: 03BY0ZZ Excision of Upper Artery, Open Approach (ICD-10-PCS; 2017-11-01)
PROC: 06BQ0ZZ Excision of Left Saphenous Vein, Open Approach (ICD-10-PCS; 2017-11-01)
PROC: 021009W Bypass Coronary Artery, One Artery from Aorta with Autologous Venous Tissue, Open Approach (ICD-10-PCS; 2017-11-01)
PROC: 02U Heart and Great Vessels, Supplement (ICD-10-PCS; 2017-11-01)
PROC: 5A1221Z Performance of Cardiac Output, Continuous (ICD-10-PCS; 2017-11-01)
DX: I21.4 Non-ST elevation (NSTEMI) myocardial infarction (principal); I25.110 Atherosclerotic heart disease of native coronary artery with unstable angina pectoris; I10 Essential (primary) hypertension; E78.5 Hyperlipidemia, unspecified; F17.210 Nicotine dependence, cigarettes, uncomplicated; I45.10 Unspecified right bundle-branch block; F10.10 Alcohol abuse, uncomplicated; R00.0 Tachycardia, unspecified; R20.0 Anesthesia of skin; G89.29 Other chronic pain; M54.2 Cervicalgia; Z95.5 Presence of coronary angioplasty implant and graft; Z89.021 Acquired absence of right finger(s); Z82.49 Family history of ischemic heart disease and other diseases of the circulatory system; Z91.14 Patient's other noncompliance with medication regimen; Z79.899 Other long term (current) drug therapy; Z79.82 Long term (current) use of aspirin
CPT/HCPCS: 36415; 36416; 36430; 71045; 80048; 80053; 80061; 82550; 82553; 82805; 83735; 83880; 84100; 84443; 84484; 85025; 85610; 85730; 86850; 86900; 86901; 93005; 93010; 93458; 93798; 94002; 94150; 94640; 94760; 96360; A4216; C1769; J1642; J1644; J1650; J1815; J1885; J1940; J2001; J2150; J2250; J2270; J2405; J2440; J2704; J2720; J3010; J3475; J7050; J7620; P9045; S0028

== ENCOUNTER 2022-02-01 00:54 | Inpatient (IN) | payer BC, OTHER, SELFPAY ==
[2022-02-01] MEDS ORDERED: Nitroglycerin 2% Ointment 1 INCH/1 GM Packet ONE (01:08)
[2022-02-01] MEDS ORDERED: Ondansetron PF 4 MG/2 ML Vial ONE (01:08)
[2022-02-01] MEDS ORDERED: Morphine 4 MG/ML VIAL ONE ×2 (01:08→02:59)
[2022-02-01 01:36] LABS: #Lymphocytes 1.7 thou/uL (1.20-3.40); #Monocytes 0.6 thou/uL (0.11-0.59); #Neutrophils 4.3 thou/uL (1.40-6.50); %Basophils 0.1 % (0.0-1.0); %Eosinophils 0.7 % (0.0-10.0); %Lymphocytes 25.1 % (21.0-51.0); %Monocytes 9.2 % (0.0-10.0); %Neutrophils 64.8 % (42.0-75.0); Hemoglobin 15.7 g/dL (14.0-18.0); Mean Corpuscular Hemoglobin 35.4 pg (27.0-31.0); Platelet Count 120 thou/uL (130-400); RBC Distribution Width 11.6 % (11.5-14.5); Red Blood Cell (RBC) Count 4.42 mill/uL (4.70-6.10); White Blood Cell (WBC) Count 6.6 thou/uL (4.8-10.8)
[2022-02-01 02:00] LABS: ALT (SGPT) 35 U/L (8-55); AST (SGOT) 29 U/L (5-34); Albumin 3.7 g/dL (3.4-4.8); Alkaline Phosphatase 58 U/L (40-110); Anion Gap 12 mmol/L (10-20); BUN (Urea Nitrogen) 15 mg/dL (8.4-25.7); Bilirubin, Total 0.3 mg/dL (0.2-1.2); CK (CPK) 147 U/L (30-200); Calc. Creatinine Clearance 0 mL/min (70-130); Calcium 8.6 mg/dL (7.8-10.44); Carbon Dioxide 21 mmol/L (23-31); Chloride 109 mmol/L (98-107); Estimated GFR 95; Globulin 2.6 g/dL (2.4-3.5); Glucose 120 mg/dL (80-115); Potassium 4.1 mmol/L (3.5-5.1); Protein, Total 6.3 g/dL (5.8-8.1); Sodium 138 mmol/L (136-145)
[2022-02-01 02:01] LABS: PTT 30.4 sec (22.9-36.1); Prothrombin Time 13.2 sec (12.0-14.7)
[2022-02-01] MEDS ORDERED: Enoxaparin Sodium 100 MG/ML SYRINGE ONE (02:47)
[2022-02-01 03:59] VITALS: BMI 30.5
[2022-02-01 05:26] LABS: Troponin I 4.282 ng/mL (< 0.028)
[2022-02-01 05:40] LABS: SARS-CoV-2 NAA Rapid Test DETECTED (NotDetected)
[2022-02-01] MEDS ORDERED: Ondansetron ODT 4 MG TAB PO PRN (06:06)
[2022-02-01] MEDS ORDERED: Benzonatate 100 MG CAP PO PRN (06:06)
[2022-02-01] MEDS ORDERED: Acetaminophen 325 MG TAB PO PRN (06:06)
[2022-02-01] MEDS ORDERED: Nitroglycerin 0.4 MG TAB (25 Tab Bottle) SL PRN (06:06)
[2022-02-01] MEDS ORDERED: Albuterol 200 PUFF (6.7GM INHALER) INH PRN (06:06)
[2022-02-01] MEDS ORDERED: Acetaminophen 650 MG Suppository PR PRN (06:06)
[2022-02-01] MEDS ORDERED: Ondansetron PF 4 MG/2 ML Vial IVP PRN (06:06)
[2022-02-01] MEDS: Ascorbic Acid 500 mg Chewable Tablet PO SCH (08:01)
[2022-02-01] MEDS: Aspirin Chewable 81 MG TAB PO SCH (08:01)
[2022-02-01] MEDS: Cholecalciferol (Vitamin D3) 400 UNITS TAB PO SCH (08:01)
[2022-02-01] MEDS: Zinc Sulfate 220 MG CAP PO SCH (08:02)
[2022-02-01] MEDS ORDERED: Nitroglycerin 50 MG/250 ML BOT 250 ML ONE (08:19)
[2022-02-01 08:26] LABS: Troponin I 25.356 ng/mL (< 0.028)
[2022-02-01] MEDS ORDERED: Nitroglycerin 50 MG/250 ML BOT 250 ML IVPB SCH (08:45)
[2022-02-01] MEDS ORDERED: Clopidogrel Bisulfate 300 MG TAB PO SCH (08:45)
[2022-02-01] MEDS ORDERED: Clopidogrel Bisulfate 300 MG TAB ONE (09:08)
[2022-02-01] MEDS: Enoxaparin Sodium 120 MG/0.8 ML SYRINGE SC SCH ×2 (09:12→20:41)
[2022-02-01 13:58] VITALS: BP 109/72
[2022-02-01] MEDS ORDERED: Morphine 2 MG/ML VIAL SLOW IVP PRN (15:08)
[2022-02-01] MEDS ORDERED: Communication Order-Pharmacy FS PRN (15:45)
[2022-02-01] MEDS: Atorvastatin Calcium 40 MG TAB PO SCH (20:38)
[2022-02-02] MEDS ORDERED: Lidocaine 1% (PF) 30 ML VIAL ONE (06:55)
[2022-02-02] MEDS ORDERED: Heparin 10,000 UNITS/ 10 ML VIAL ONE (06:55)
[2022-02-02 07:09] LABS: #Lymphocytes 1.9 thou/uL (1.20-3.40); #Monocytes 0.8 thou/uL (0.11-0.59); #Neutrophils 6.7 thou/uL (1.40-6.50); %Basophils 0.3 % (0.0-1.0); %Eosinophils 0.2 % (0.0-10.0); %Lymphocytes 20.4 % (21.0-51.0); %Monocytes 8.2 % (0.0-10.0); Hemoglobin 15.1 g/dL (14.0-18.0); Mean Corpuscular HGB CONC 34.2 g/dL (32.0-36.0); Mean Corpuscular Hemoglobin 35.4 pg (27.0-31.0); Mean Platelet Volume 10.2 fL (7.4-10.4); Platelet Count 132 thou/uL (130-400); RBC Distribution Width 11.4 % (11.5-14.5); Red Blood Cell (RBC) Count 4.26 mill/uL (4.70-6.10); White Blood Cell (WBC) Count 9.5 thou/uL (4.8-10.8)
[2022-02-02 07:27] LABS: Anion Gap 11 mmol/L (10-20); BUN (Urea Nitrogen) 10 mg/dL (8.4-25.7); Calc. Creatinine Clearance 139 mL/min (70-130); Calcium 8.2 mg/dL (7.8-10.44); Carbon Dioxide 21 mmol/L (23-31); Chloride 106 mmol/L (98-107); Estimated GFR 99; Glucose 122 mg/dL (80-115); Sodium 134 mmol/L (136-145)
[2022-02-02] MEDS ORDERED: Midazolam HCl 2 mg/2 ml Vial ONE (07:46)
[2022-02-02] MEDS ORDERED: Fentanyl 100 MCG/2 ML VIAL ONE (07:46)
[2022-02-02] MEDS: Cholecalciferol (Vitamin D3) 400 UNITS TAB PO SCH (08:22)
[2022-02-02] MEDS: Clopidogrel Bisulfate 75 MG TAB PO SCH (08:22)
[2022-02-02] MEDS: Aspirin Chewable 81 MG TAB PO SCH (08:22)
[2022-02-02] MEDS: Ascorbic Acid 500 mg Chewable Tablet PO SCH (08:22)
[2022-02-02] MEDS: Zinc Sulfate 220 MG CAP PO SCH (08:23)
[2022-02-02] MEDS ORDERED: Sodium Chloride 0.9% 200 ML IV PRN (13:14)
[2022-02-02] MEDS ORDERED: Acetaminophen/Codeine 30-300mg Tablet PO PRN (13:14)
[2022-02-02] MEDS ORDERED: Sodium Chloride 0.9% 500 ML IV SCH (13:15)
[2022-02-02] MEDS: Atorvastatin Calcium 40 MG TAB PO SCH (20:14)
[2022-02-02] MEDS ORDERED: Metoprolol Tartrate 25 MG TAB PO SCH (21:00)
[2022-02-02] MEDS ORDERED: Enoxaparin Sodium 40 MG/0.4 ML SYRINGE SC SCH (21:00)
[2022-02-03] MEDS: Clopidogrel Bisulfate 75 MG TAB PO SCH (08:19)
[2022-02-03] MEDS: Ascorbic Acid 500 mg Chewable Tablet PO SCH (08:19)
[2022-02-03] MEDS: Aspirin Chewable 81 MG TAB PO SCH (08:20)
[2022-02-03] MEDS: Zinc Sulfate 220 MG CAP PO SCH (08:20)
[2022-02-03] MEDS: Cholecalciferol (Vitamin D3) 400 UNITS TAB PO SCH (08:20)
[2022-02-03 09:48] VITALS: TEMP 98.3
== END 2022-02-03 11:31 | disposition home or self-care (01) | DRG 280 ==
LOC: ERS 00:54 → ERHOLD 03:22 → CCU 14:19
PROVIDERS: ADMIT Student in an Organized Health Care Education/Training Program; ATTEND Internal Medicine
PROC: 4A023N7 Measurement of Cardiac Sampling and Pressure, Left Heart, Percutaneous Approach (ICD-10-PCS; principal; 2022-02-02)
PROC: B2111ZZ Fluoroscopy of Multiple Coronary Arteries using Low Osmolar Contrast (ICD-10-PCS; 2022-02-02)
PROC: B2131ZZ Fluoroscopy of Multiple Coronary Artery Bypass Grafts using Low Osmolar Contrast (ICD-10-PCS; 2022-02-02)
PROC: B2151ZZ Fluoroscopy of Left Heart using Low Osmolar Contrast (ICD-10-PCS; 2022-02-02)
DX: I21.4 Non-ST elevation (NSTEMI) myocardial infarction (principal); U07.1 COVID-19; E87.1 Hypo-osmolality and hyponatremia; I25.810 Atherosclerosis of coronary artery bypass graft(s) without angina pectoris; F17.210 Nicotine dependence, cigarettes, uncomplicated; E78.00 Pure hypercholesterolemia, unspecified; D69.6 Thrombocytopenia, unspecified; I45.10 Unspecified right bundle-branch block; I10 Essential (primary) hypertension; I25.10 Atherosclerotic heart disease of native coronary artery without angina pectoris; Z95.5 Presence of coronary angioplasty implant and graft; Z79.82 Long term (current) use of aspirin; Z79.899 Other long term (current) drug therapy; Z95.1 Presence of aortocoronary bypass graft; Z91.14 Patient's other noncompliance with medication regimen
CPT/HCPCS: 36415; 71045; 80048; 80053; 82550; 82553; 83605; 83735; 84443; 84484; 85025; 85610; 85730; 93005; 93459; 94760; 96372; 96374; 96375; 96376; 99152; 99153; J1644; J1650; J2001; J2250; J2270; J2405; J3010; U0002